=== PATIENT | female | born 1970 | race Two or more races ===

== ENCOUNTER → 2016-12-06 | Outpatient (CLI) | payer OTHER | LOC: BRMIMAGING 09:46 | PROVIDERS: ATTEND Specialist | DX: S63.501D Unspecified sprain of right wrist, subsequent encounter (principal) | CPT/HCPCS: 73110-PO ==

== ENCOUNTER → 2017-06-28 | Outpatient (CLI) | payer OTHER | LOC: BRMIMAGING 10:41 | PROVIDERS: ATTEND Internal Medicine | DX: M79.641 Pain in right hand (principal) | CPT/HCPCS: 73130-PO ==